=== PATIENT | female | born 2000 | race African-American/Black ===

== ENCOUNTER 2022-04-29 22:15 | Emergency (ER) | payer OTHER, BC ==
[2022-04-29] MEDS ORDERED: Acetaminophen 500 MG TAB ONE (22:38)
== END 2022-04-30 01:47 | disposition home or self-care (01) ==
LOC: CSHERS 22:15
DX: S39.012A Strain of muscle, fascia and tendon of lower back, initial encounter (principal); V89.2XXA Person injured in unspecified motor-vehicle accident, traffic, initial encounter
CPT/HCPCS: 71045; 72170; 74176